=== PATIENT | female | born 1985 | race Caucasian/White ===

== ENCOUNTER 2016-09-26 20:16 | Emergency (ER) | payer MEDICAID ==
[2016-09-26 20:27] VITALS: BP 126/76; PULSE 87; TEMP 98.1; O2SAT 100
--- NOTE | 2016-09-26 21:07 | C.PDOC ---
History Of Present Illness 31 year old patient, with a past medical history of hepatitis C and Crohn's Disease, presents to the ED requesting heroin detox. Patient states she has been using it by IV for many years. She tried detox before and stayed clean for 7 months. Patient has been on the detox wait list for a while now. She admits her last use was around 4 pm today. Patient denies fever, nausea, vomiting, suicidal ideation, homicidal ideation or any other physical complaints. Time Seen by Provider: 09/26/16 20:33 Chief Complaint (Nursing): Psychiatric Evaluation History Per: Patient History/Exam Limitations: no limitations Onset/Duration Of Symptoms: Other Current Symptoms Are (Timing): Still Present Suicide/Self Injury Attempted (Context): None Modifying Factor(s): Other (heroin) Severity: None Pain Scale Rating Of: 0 Associated Symptoms: Other (upset) Recent travel outside of the [place]: No Past Medical History Reviewed: Historical Data, Nursing Documentation, Vital Signs Vital Signs: Last Vital Signs Temp 98.1 F 09/26/16 20:40 Pulse 87 09/26/16 20:40 Resp 20 09/26/16 20:40 BP 126/76 09/26/16 20:40 Pulse Ox 100 09/26/16 21:13 - Medical History PMH: Crohn's Disease Family History: States: Unknown Family Hx - Social History Hx Alcohol Use: Yes Hx Substance Use: Yes - Immunization History Hx Tetanus Toxoid Vaccination: No Hx Influenza Vaccination: No Hx Pneumococcal Vaccination: No Review Of Systems Except As Marked, All Systems Reviewed And Found Negative. Constitutional: Negative for: Fever Gastrointestinal: Negative for: Nausea, Vomiting Psych: Negative for: Suicidal ideation Physical Exam - Physical Exam Appears: Non-toxic, No Acute Distress, Other (upset) Skin: Warm, Dry Head: Atraumatic, Normacephalic Neck: Normal ROM, Supple Chest: Symmetrical Cardiovascular: Rhythm Regular Respiratory: Normal Breath Sounds, No Rales, No Rhonchi, No Wheezing Gastrointestinal/Abdominal: Soft, No Tenderness Back: Normal Inspection, No CVA Tenderness Extremity: Normal ROM Neurological/Psych: Oriented x3 ED Course And Treatment O2 Sat by Pulse Oximetry: 100 (room air) Pulse Ox Interpretation: Normal Progress Note: Patient was seen by Vy from crisis. She is actually nexton the detox list and there may be a bed available in the morning. She is advised to call in the morning for pre-screening. Disposition - Disposition Disposition: HOME/ ROUTINE Disposition Time: 21:28 Condition: STABLE Instructions: Narcotic Abuse (ED) - Clinical Impression Clinical Impression: Narcotic abuse - Scribe Statement The provider has reviewed the documentation as recorded by the Scribe Sallie Garcia Provider Attestation: All medical record entries made by the Scribe were at my direction and personally dictated by me. I have reviewed the chart and agree that the record accurately reflects my personal performance of the history, physical exam, medical decision making, and the department course for this patient. I have also personally directed, reviewed, and agree with the discharge instructions and disposition.
[2016-09-26 21:36] VITALS: RESP 18
== END 2016-09-26 21:30 | disposition home or self-care (01) ==
LOC: C.ER 20:16
DX: F11.10 Opioid abuse, uncomplicated (principal)

== ENCOUNTER 2016-09-27 17:45 | Inpatient (IN) | payer MEDICAID ==
[2016-09-27 18:22] LABS: BASO # 0.1 K/uL (0.0-0.2); BASO % 0.8 % (0.0-2.0); EOS # 0.3 K/uL (0.0-0.7); EOS % 3.3 % (0.0-4.0); HEMATOCRIT 26.1 % (34.0-47.0); LYMPH # 3.7 K/uL (1.0-4.3); LYMPH % 36.7 % (20.0-40.0); MEAN CELL VOLUME 76.5 fL (81.0-99.0); MEAN CORPUSCULAR HEMOGLOBIN 23.8 pg (27.0-31.0); MEAN CORPUSCULAR HGB CONC 31.1 g/dL (33.0-37.0); MEAN PLATELET VOLUME 8.3 fL (7.2-11.7); MONO % 9.9 % (0.0-10.0); RED CELL DISTRIBUTION WIDTH 18.1 % (11.5-14.5); WHITE BLOOD COUNT 10.1 K/uL (4.8-10.8)
[2016-09-27 18:26] LABS: RBC URINE < 1 /hpf (0-3); URINE BILIRUBIN NEGATIVE (NEGATIVE); URINE BLOOD NEGATIVE (NEGATIVE); URINE COLOR Yellow (YELLOW); URINE GLUCOSE (UA) NORMAL (Normal); URINE KETONE NEGATIVE (NEGATIVE); URINE LEUKOCYTE ESTERASE NEG Leu/uL (Negative); URINE PROTEIN 1+ mg/dL (NEGATIVE); URINE UROBILINOGEN NORMAL mg/dL (0.2-1.0); WBC URINE < 1 /hpf (0-5)
[2016-09-27 18:31] LABS: CHLORIDE 101 mmol/L (98-107); SODIUM 135 mmol/L (132-148)
[2016-09-27 18:33] LABS: BILIRUBIN,TOTAL 0.4 mg/dL (0.2-1.3); CARBON DIOXIDE 25 mmol/L (22-30); GFR AFRICAN-AMERICAN > 60
[2016-09-27 18:34] LABS: ALCOHOL SERUM < 10 mg/dl (0-10); ALKALINE PHOSPHATASE 89 U/L (38-126); ALT/SGPT 64 U/L (9-52); AST/SGOT 63 U/L (14-36); BLOOD UREA NITROGEN 18 mg/dL (7-17); GLUCOSE,RANDOM 98 mg/dL (65-105); TOTAL PROTEIN 7.9 g/dL (6.3-8.3)
--- NOTE | 2016-09-27 19:31 | C.PDOC ---
History Of Present Illness 31 y/o female presents to the ED for heroin detox. Pt arrives prescreened. Last used 4 bags heroin last night. No complaints at this time. Hx of Crohn's disease. Time Seen by Provider: 09/27/16 17:59 Chief Complaint (Nursing): Substance Abuse History Per: Patient History/Exam Limitations: no limitations Suicide/Self Injury Attempted (Context): None Modifying Factor(s): Narcotics Associated Symptoms: denies: Suicidal Thoughts Involuntary Hold By: None Recent travel outside of the [place]: No Past Medical History Reviewed: Historical Data, Nursing Documentation, Vital Signs Vital Signs: Last Vital Signs Temp 98.1 F 09/27/16 21:46 Pulse 88 09/27/16 21:46 Resp 18 09/27/16 21:46 BP 108/71 09/27/16 21:46 Pulse Ox 100 09/27/16 21:46 - Medical History PMH: Crohn's Disease, Hepatitis (C) Family History: States: Unknown Family Hx - Social History Hx Alcohol Use: Yes Hx Substance Use: Yes - Immunization History Hx Tetanus Toxoid Vaccination: No Hx Influenza Vaccination: No Hx Pneumococcal Vaccination: No Review Of Systems Except As Marked, All Systems Reviewed And Found Negative. Physical Exam - Physical Exam Appears: Non-toxic, No Acute Distress, Other (obese white female, cooperative) Skin: Warm, Dry Head: Atraumatic, Normacephalic Neck: Normal, Normal ROM, Supple Chest: Symmetrical Cardiovascular: Rhythm Regular, No Murmur Respiratory: Normal Breath Sounds, No Rales, No Rhonchi, No Wheezing Gastrointestinal/Abdominal: Soft, No Tenderness Extremity: Bilateral: Atraumatic Neurological/Psych: Oriented x3, Normal Speech ED Course And Treatment - Laboratory Results Result Diagrams: 09/27/16 18:17 09/27/16 18:17 Lab Interpretation: Abnormal (microcytic anemia, tox + cocaine/opiates.) Urine POC: Negative O2 Sat by Pulse Oximetry: 98 (room air) Pulse Ox Interpretation: Normal Reevaluation Time: 20:29 Reassessment Condition: Unchanged Medical Decision Making Medical Decision Making: chronic iron deficiency anemia- in light of Crohn's Dz, probably GI source, but thorough GI and ECHOCARDIOGRAPHY TECHNOLOGIST eval indicated Continue Iron supplements by mouth 3x/day and stool softners to prevent constipation from the iron supplements. heroine and cocaine abuse- d/w Crisis workers- ok to Detox @ 2030 Disposition Doctor Will See Patient In The: Hospital Counseled Patient/Family Regarding: Studies Performed, Diagnosis - Disposition Disposition: HOSPITALIZED Disposition Time: 20:30 Condition: GOOD - Clinical Impression Clinical Impression: Narcotic abuse, Cocaine abuse, Microcytic anemia - Scribe Statement The provider has reviewed the documentation as recorded by the Reedibpat Esparza Provider Attestation: All medical record entries made by the Gayle were at my direction and personally dictated by me. I have reviewed the chart and agree that the record accurately reflects my personal performance of the history, physical exam, medical decision making, and the department course for this patient. I have also personally directed, reviewed, and agree with the discharge instructions and disposition.
[2016-09-28] MEDS ORDERED: Buprenorphine Hydrochloride 2 mg SL ONE ×2 (06:00→07:21)
[2016-09-28 06:02] VITALS: O2SAT 99
[2016-09-28 10:03] VITALS: BP 124/89; PULSE 91; RESP 18; TEMP 98.3
--- NOTE | 2016-09-28 13:13 | PCM.PSYCH ---
Initial Psychiatric Evaluation - Initial Psychiatric Evaluation Type of Admission: Voluntary Legal Status: Capacity Chief Complaint (in patient's own words): "I don't feel well." History of Present Illness and Precipitating Events: The patient is a 30yo female, single with no children, came to the ED to get help in heroin detox. She says that she lives in [facility] with her boyfriend. The patient states that she is unemployed but her boyfriend takes care of her. She says that she injects 20 bags of heroine a day for the past 14 years. She states that her longest sobriety was 7 months and she relapsed after her miscarriage. She has previously been to detox in [place] 1-1.5 years ago. She denies alcohol use and states she smokes a pack of cigarettes a day for the past 16 years but smokes vapor now. She denies any legal issues and states her plan is to stop using. She denies S/I or H/I. She states she has been experiencing nausea, vomiting, body aches, headache, decreased appetite, and a runny nose. She currently appears to be disheveled and very uncomfortable, tossing and turning throughout this interview. Past psych history: denies Past medical history: Hepatitis C, Crohns disease Family history: Mother and brother committed suicide Current Medications: Active Medications Generic Name Dose Route Start Last Admin Trade Name Freq PRN Reason Stop Dose Admin Nicotine 1 patch 09/28/16 10:45 09/28/16 11:15 Nicoderm Cq TD 1 patch DAILY MANUELA Administration Trazodone HCl 50 mg 09/27/16 22:03 09/27/16 22:19 Desyrel PO 50 mg HS PRN Administration Insomnia Past Psychiatric History - Past Psychiatric History Previous Treatment History: Inpatient Pertinent Medical Hx (Current Medical&Sleep Prob, Allergies): Allergies Allergy/AdvReac Type Severity Reaction Status Date / Time No Known Allergies Allergy Verified 09/27/16 17:49 No Known Home Med 09/26/16 Review of Systems - Review of Systems All systems: reviewed and no additional remarkable complaints except - Psychiatric Psychiatric: Anxiety, Irritability. absent: Homicidal Ideation, Suicidal Ideation Mental Status Examination - Personal Presentation Personal Presentation: Looks stated age - Affect Affect: Constricted - Motor Activity Motor Activity: Psychomotor Agitation - Reliability in Providing Information Reliability in Providing Information: Fair - Speech Speech: Organized - Mood Mood: Depressed, Anxious - Formal Thought Process Formal Thought Process: No Impairment - Obsessions/Compulsions Obsessions: No Compulsions: No - Cognitive Functions Orientation: Person, Place, Situation, Time Sensorium: Alert Attention/Concentration: Attentive Abstract Thinking: [place] Estimate of Intelligence: Below average Judgement: Imparied, as evidence by: Poor judgement, Intact, as evidence by: Insight regarding need for hospitalization - Risk Risk: Withdrawal, Diminished functioning - Strength & Assets Inventory Strength & Assets Inventory: Family support DSM 5 DX - DSM 5 DSM 5 Diagnosis: Opiate use disorder severe Opiate withdrawal Mood disorder - Recommended/Plan of Treatment Treatment Recommendations and Plan of Treatment: Opioid use disorder severe CBT Psychoeducation Supportive therapy, individual therapy Use [place] for abstinence Opioid withdrawal CBT Psychoeducation Supportive therapy, individual therapy Clonidine when necessary Subutax taper Mood disorder CBT Psychoeducation Supportive therapy, individual therapy Neurontin 100 mg by mouth 3 times a day Trazodone 50 mg by mouth daily at bedtime - Smoking Cessation Smoking Cessation Initiated: No
--- NOTE | 2016-09-28 17:03 | PCM.PYCHDC ---
Mental Status Examination - Mental Status Examination Orientation: Person, Place, Situation, Time Memory: Intact Mood: Neutral Affect: Constricted Speech: Soft Attention: WNL Concentration: WNL Association: WNL Fund of Knowledge: WNL Formal Thought Process: No Impairment Description of patient's judgement and insight: partially impaired Psychotic Thoughts and Behaviors: denies any auditory or visual hallucinations Suicidal Ideation: No Current Homicidal Ideation?: No Discharge Summary - Discharge Note Reason for Hospitalization: The patient is a 30yo female, single with no children, came to the ED to get help in heroin detox. She says that she lives in [facility] with her boyfriend. The patient states that she is unemployed but her boyfriend takes care of her. She says that she injects 20 bags of heroine a day for the past 14 years. She states that her longest sobriety was 7 months and she relapsed after her miscarriage. She has previously been to detox in [place] 1-1.5 years ago. She denies alcohol use and states she smokes a pack of cigarettes a day for the past 16 years but smokes vapor now. She denies any legal issues and states her plan is to stop using. She denies S/I or H/I. She states she has been experiencing nausea, vomiting, body aches, headache, decreased appetite, and a runny nose. She currently appears to be disheveled and very uncomfortable, tossing and turning throughout this interview. Past psych history: denies Past medical history: Hepatitis C, Crohns disease Family history: Mother and brother committed suicide Consultations:: List each consultation separately and include: 1. Reason for request. 2. Findings. 3. Follow-up Summary of Hospital Course include:: 1. Description of specific treatment plan utilized for patients during their course of treatmen. 2. Summarize the time- course for resolution of acute symptoms and/or regressed behaviors. 3. Describe issues identified and worked on during hospitalization. 4. Describe medication utilized. 5. Describe medical problems identified and treated. 6. Reassessment of suicide risk Summary of Hospital Course: During the course of her stay, patient (pt) started progressively improving, she was given Subutex taper. However, in 4 hours patient stated she wants to sign out AMA. She mentioned that she came here to get methadone but she was given Subutex and she is going to a methadone program. Patient denied any feelings of hopelessness, helplessness, and worthlessness, denied any problem with the sleep or appetite, denied suicidal ideation or homicidal ideation. Pt denied any auditory or visual hallucinations. - Final Diagnosis (DSM 5) Condition upon Discharge: GOOD DSM 5: Opioid use disorder severe Opioid withdrawal Mood disorder Disposition: AGAINST MEDICAL ADVICE Follow-up Treatment Plan: Education: Pt was educated and counseled about the risks and benefits of taking and not taking medications. Pt was educated and counseled about the risks of drinking and abusing drugs. Pt was educated and counseled to go to the ER or call 911 if pt develop suicidal ideation or homicidal ideation, worsening of symptoms or severe side effects of the meds. - Smoking Cessation Smoking Cessation Medication prescribed: No - Antipsychotic Medications Pt discharged on 2 or more routine antipsychotic medications: No
== END 2016-09-28 14:30 | disposition left against medical advice (07) | DRG 743 ==
LOC: C.ER 17:45 → C.7D 20:32
PROVIDERS: ADMIT Psychiatry & Neurology Psychiatry; ATTEND Psychiatry & Neurology Psychiatry
DX: F11.23 Opioid dependence with withdrawal (principal); K50.90 Crohn's disease, unspecified, without complications; B19.20 Unspecified viral hepatitis C without hepatic coma; F14.10 Cocaine abuse, uncomplicated; D50.9 Iron deficiency anemia, unspecified; F39 Unspecified mood [affective] disorder

== ENCOUNTER 2016-11-04 19:56 | Inpatient (IN) | payer MEDICAID, OTHER ==
[2016-11-04 19:56] VITALS: BMI 26.5
--- NOTE | 2016-11-04 20:57 | C.PDOC ---
History Of Present Illness Patient is a 31 y/o female, with history of heroin abuse, hepatitis C, and crohn 's disease, that presents to the ED for evaluation of suicidal ideation. Patient reports using 20 bags of IV heroin everyday. Pt states that her heroin use is getting out of control, and states that she is having thoughts of killing herself. Otherwise, denies any HI, or any physical complaints at this time. Time Seen by Provider: 11/04/16 20:41 Chief Complaint (Nursing): Psychiatric Evaluation History Per: Patient History/Exam Limitations: no limitations Onset/Duration Of Symptoms: Gradual Current Symptoms Are (Timing): Still Present Suicide/Self Injury Attempted (Context): None Modifying Factor(s): Other (heroin) Severity: None Pain Scale Rating Of: 0 Associated Symptoms: Suicidal Thoughts Involuntary Hold By: None Recent travel outside of the [place]: No Additional History Per: Patient Past Medical History Reviewed: Historical Data, Nursing Documentation, Vital Signs Vital Signs: Last Vital Signs Temp 98.2 F 11/04/16 20:08 Pulse 85 11/04/16 20:08 Resp 18 11/04/16 20:08 BP 112/78 11/04/16 20:08 Pulse Ox 100 11/04/16 20:59 - Medical History PMH: Crohn's Disease, Hepatitis (C) Denies: Diabetes, HIV, HTN, Chronic Kidney Disease, Seizures, Sexually Transmitted Disease Family History: States: Unknown Family Hx - Social History Hx Alcohol Use: Yes Hx Substance Use: Yes - Immunization History Hx Tetanus Toxoid Vaccination: No Hx Influenza Vaccination: No Hx Pneumococcal Vaccination: No Review Of Systems Except As Marked, All Systems Reviewed And Found Negative. Constitutional: Negative for: Fever, Chills Cardiovascular: Negative for: Chest Pain, Palpitations Respiratory: Negative for: Cough, Shortness of Breath Gastrointestinal: Negative for: Nausea, Vomiting, Abdominal Pain Neurological: Negative for: Headache, Dizziness Psych: Positive for: Suicidal ideation Physical Exam - Physical Exam Appears: Non-toxic, No Acute Distress, Other (restless, anxious) Skin: Normal Color, Warm, Dry Head: Atraumatic, Normacephalic Eye(s): bilateral: Normal Inspection, EOMI Neck: Normal ROM, Supple Chest: Symmetrical, No Tenderness Cardiovascular: Rhythm Regular, No Murmur Respiratory: Normal Breath Sounds, No Rales, No Rhonchi, No Wheezing Gastrointestinal/Abdominal: Soft, No Tenderness Extremity: Normal ROM, No Deformity Neurological/Psych: Oriented x3, Normal Speech, Normal Cognition ED Course And Treatment - Laboratory Results Result Diagrams: 11/04/16 21:10 11/04/16 21:10 Lab Interpretation: No Acute Changes (mild anemia) O2 Sat by Pulse Oximetry: 100 (on RA) Pulse Ox Interpretation: Normal Progress Note: Labs ordered and reviewed. Patient medically cleared for psych admission. Disposition - Disposition Disposition: HOSPITALIZED Disposition Time: 23:57 Condition: STABLE - Clinical Impression Clinical Impression: Moderate major depression, single episode - Scribe Statement The provider has reviewed the documentation as recorded by the Scribe Phillip Garcia All medical record entries made by the Reedibpat were at my direction and personally dictated by me. I have reviewed the chart and agree that the record accurately reflects my personal performance of the history, physical exam, medical decision making, and the department course for this patient. I have also personally directed, reviewed, and agree with the discharge instructions and disposition.
[2016-11-04 21:20] LABS: HCG,QUALITATIVE URINE NEGATIVE (NEGATIVE)
[2016-11-04 21:21] LABS: BASO % 0.7 % (0.0-2.0); EOS # 0.3 K/uL (0.0-0.7); EOS % 3.9 % (0.0-4.0); HEMOGLOBIN 8.5 g/dL (11.0-16.0); LYMPH # 2.7 K/uL (1.0-4.3); MEAN CORPUSCULAR HGB CONC 30.3 g/dL (33.0-37.0); MEAN PLATELET VOLUME 9.1 fL (7.2-11.7); MONO # 0.9 K/uL (0.0-0.8); MONO % 11.9 % (0.0-10.0); NEUT # 3.3 K/uL (1.8-7.0); NEUT % 45.5 % (50.0-75.0); RBC 3.7 Mil/uL (3.80-5.20); RED CELL DISTRIBUTION WIDTH 17.7 % (11.5-14.5); WHITE BLOOD COUNT 7.2 K/uL (4.8-10.8)
[2016-11-04 21:26] LABS: SQUAMOUS EPITHIAL 11 /hpf (0-5); URINE BACTERIA RARE (<OCC); URINE BILIRUBIN NEGATIVE (NEGATIVE); URINE BLOOD NEGATIVE (NEGATIVE); URINE CLARITY Hazy (Clear); URINE COLOR Yellow (YELLOW); URINE GLUCOSE (UA) NORMAL (Normal); URINE LEUKOCYTE ESTERASE TRACE Leu/uL (Negative); URINE NITRATE NEGATIVE (NEGATIVE); URINE PROTEIN NEGATIVE (NEGATIVE); URINE UROBILINOGEN NORMAL mg/dL (0.2-1.0)
[2016-11-04 21:30] LABS: ALBUMIN 3.8 g/dL (3.5-5.0)
[2016-11-04 21:32] LABS: GFR AFRICAN-AMERICAN > 60; GFR NON-AFRICAN AMERICAN > 60
[2016-11-04 21:33] LABS: ALB/GLOB RATIO 0.8 (1.0-2.1); ALT/SGPT 25 U/L (9-52); AST/SGOT 31 U/L (14-36); BLOOD UREA NITROGEN 11 mg/dL (7-17); CALCIUM 8.3 mg/dl (8.6-10.4)
[2016-11-04 21:37] LABS: BARBITURATES, UR NEGATIVE (NEGATIVE); BENZODIAZEPINES, UR NEGATIVE (NEGATIVE)
[2016-11-04 21:40] LABS: OPIATES, UR NEGATIVE (NEGATIVE)
[2016-11-04 21:41] LABS: PHENCYCLIDINE, UR NEGATIVE (NEGATIVE)
[2016-11-04] MEDS ORDERED: Lidocaine 2% w Epi 1:100,000 Inj IJ ONE (21:48)
[2016-11-04] MEDS ORDERED: Oxycodone/Acetaminophen 5/325 mg Tab ONE (21:48)
[2016-11-05 01:08] VITALS: O2SAT 99
--- NOTE | 2016-11-05 11:50 | PCM.PSYCH ---
Initial Psychiatric Evaluation - Initial Psychiatric Evaluation Type of Admission: Voluntary Legal Status: Capacity Chief Complaint (in patient's own words): "I need help" History of Present Illness and Precipitating Events: The pt is seen, chart reviewed and case discussed. 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. HPI: She says she is in "pain" and tired of living like that, cries a lot during the interview and reports "lots of anxiety." She admits to having thoughts of killing herself but contracts for safety now and agrees to follow her safety plan. Her depression started "long ago" but got worse in the last 4 months. She also reports panic attacks and excessive worrying. On top of that she had been using heroin 20 bags a day, iv, "for years." She was in detox/rehab once at [facility]. She also used methadone at [facility] in [place]. No psychotic or manic sxs Denies other drugs Past psych hx: No admissions to psych but was at [facility] rehab. One kennedy attempt at age 15, previous dep episodes Family psych hx: Mo is an alcoholic and uncle killed himself and had schizophrenia. Medical hx: Hep C and Chron's Current Medications: Active Medications Generic Name Dose Route Start Last Admin Trade Name Freq PRN Reason Stop Dose Admin Acetaminophen 650 mg 11/05/16 00:37 Tylenol 325mg Tab PO Q6 PRN Fever >100.4 F Bacitracin 1 ea 11/05/16 14:00 Bacitracin TOP TID MANUELA Hydroxyzine HCl 25 mg 11/05/16 00:42 11/05/16 02:21 Atarax PO 25 mg Q6 PRN Administration Agitation Loperamide HCl 2 mg 11/05/16 00:37 Imodium PO Q8 PRN Diarrhea Methadone HCl 10 mg 11/05/16 14:00 Methadone PO 11/05/16 14:01 ONCE ONE Methadone HCl 5 mg 11/06/16 10:00 Methadone PO 11/08/16 10:01 DAILY MANUELA Nicotine 1 patch 11/05/16 11:45 Nicoderm Cq TD DAILY MANUELA Ondansetron HCl 4 mg 11/05/16 00:37 Zofran Tab PO Q8H PRN Nausea/Vomiting Sertraline HCl 25 mg 11/05/16 10:00 11/05/16 09:59 Zoloft PO 25 mg DAILY MANUELA Administration Trazodone HCl 50 mg 11/05/16 22:00 Desyrel PO HS MANUELA Past Psychiatric History - Past Psychiatric History Previous Treatment History: None Pertinent Medical Hx (Current Medical&Sleep Prob, Allergies): Allergies Allergy/AdvReac Type Severity Reaction Status Date / Time No Known Allergies Allergy Verified 11/04/16 20:07 No Known Home Med 09/26/16 Review of Systems - Neurological Neurological: UNREMARKABLE - Psychiatric Psychiatric: Abnormal Sleep Pattern, Anhedonia, Anxiety, Behavioral Changes, Change in Appetite, Depression, Difficulty Concentrating. absent: Hallucinations, Homicidal Ideation, Paranoia, Suicidal Ideation Mental Status Examination - Personal Presentation Personal Presentation: Looks stated age (shaky, unkempt, poor eye contact) - Affect Affect: Constricted - Motor Activity Motor Activity: Other (restless, afudgety) - Reliability in Providing Information Reliability in Providing Information: Good - Speech Speech: Organized - Mood Mood: Depressed, Anxious - Formal Thought Process Formal Thought Process: No Impairment - Cognitive Functions Orientation: Person, Place, Time Sensorium: Alert Attention/Concentration: Attentive Estimate of Intelligence: Average Judgement: Intact, as evidence by: Insight regarding need for hospitalization Memory: Recent intact, as evidence by: Ability to recall events of the day, Remote intact, as evidenced by: Abilit to recall sig. life events - Risk Risk: Withdrawal, Diminished functioning - Strength & Assets Inventory Strength & Assets Inventory: Family support, Employment history, Cooperative DSM 5 DX - DSM 5 DSM 5 Diagnosis: Primary: Major depressive d/o - recurrent, severe without psychotic features Panic d/o [place] Opioid use d/o - severe Opioid withdrawal - Recommended/Plan of Treatment Treatment Recommendations and Plan of Treatment: Depression and anxiety d/o: Start medication treatment with As needed medications Attend groups and activities Individual therapy with CBT Supportive therapy and psychoeducation Teach relaxation skills Follow medical conditions, labs, vitals Refer to after care program Opioids: Methadone detox Gabapentin for augmentation As needed meds and vitamins Attend groups and activities [place] for abstinence and CBT for relapse prevention Support and psychoeducation Consider and encourage MAT Refer to after care 33 min Projected ELOS: 6-7 days Prognosis: Good with treatment Discharge Plan and Discharge Criteria: No wdw sxs and no severe depressive sxs Refer to rehab or IOP - Smoking Cessation Smoking Cessation Initiated: Yes
[2016-11-05] MEDS: Bacitracin 500 Units/gm Oint Foilpak UD TOP SCH ×3 (13:37→18:04)
[2016-11-06] MEDS: Bacitracin 500 Units/gm Oint Foilpak UD TOP SCH ×2 (09:26→18:10)
--- NOTE | 2016-11-06 12:43 | PCM.PYCHPN ---
Psychiatric Progress Note - Psychiatric Progress Note Patient seen today, length of contact: 16 min Patient Chief Complaint: I am withdrawing' Problems Identified/Issues Discussed: Patient seen and evaluated, chart reviewed and discussed with the nurse. Patient reports depressed mood and remained isolated and withdrawn. She reports poor sleep and poor appetite and still complains of abdominal pain. Patient also reports withdrawal symptoms including cramps, nausea, anxiety, and headaches. She is tolerating the withdrawal medications and denies any side effects. Supportive therapy and psychoeducation were given. Medication Change: Yes (methadone taper) Medical Record Reviewed: Yes Mental Status Examination - Cognitive Function Orientation: Person, Place, Time Memory: Intact Attention: WNL Concentration: Poor Association: WNL Fund of Knowledge: Poor - Mood Mood: Depressed, Anxious - Affect Affect: Constricted - Speech Speech: Soft - Formal Thought Process Formal Thought Process: No Impairment - Suicidal Ideation Suicidal Ideation: No - Homicidal Ideation Homicidal Ideation: No Goal/Treatment Plan - Goal/Treatment Plan Need for Continued Stay: Discharge may exacerbated symptoms, Severe functional impairment Progress Toward Problem(s) and Goals/Treatment Plan: Depression and anxiety d/o: Start medication treatment with As needed medications Attend groups and activities Individual therapy with CBT Supportive therapy and psychoeducation Teach relaxation skills Follow medical conditions, labs, vitals Refer to after care program Opioids: Methadone detox Gabapentin for augmentation As needed meds and vitamins Attend groups and activities [place] for abstinence and CBT for relapse prevention Support and psychoeducation Consider and encourage MAT Refer to after care - Smoking Cessation Smoking Cessation Initiated: No
[2016-11-07] MEDS: Bacitracin 500 Units/gm Oint Foilpak UD TOP SCH ×4 (13:39→17:22)
[2016-11-07 14:01] VITALS: RESP 20; TEMP 97.9
[2016-11-07 16:38] VITALS: BP 112/76; PULSE 93
--- NOTE | 2016-11-08 09:00 | PCM.PYCHDC ---
Mental Status Examination - Mental Status Examination Orientation: Person, Place, Situation, Time Memory: Intact Mood: Anxious Affect: Constricted Speech: Appropriate Attention: WNL Concentration: WNL Association: WNL Fund of Knowledge: WNL Formal Thought Process: No Impairment Suicidal Ideation: No Current Homicidal Ideation?: No Discharge Summary - Discharge Note Reason for Hospitalization: Feeling depressed, suicidal, opioid withdrawal Consultations:: List each consultation separately and include: 1. Reason for request. 2. Findings. 3. Follow-up Summary of Hospital Course include:: 1. Description of specific treatment plan utilized for patients during their course of treatmen. 2. Summarize the time- course for resolution of acute symptoms and/or regressed behaviors. 3. Describe issues identified and worked on during hospitalization. 4. Describe medication utilized. 5. Describe medical problems identified and treated. 6. Reassessment of suicide risk Summary of Hospital Course: On admission: The pt is seen, chart reviewed and case discussed. 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 HPI: She says she is in "pain" and tired of living like that, cries a lot during the interview and reports "lots of anxiety." She admits to having thoughts of killing herself but contracts for safety now and agrees to follow her safety plan. Her depression started "long ago" but got worse in the last 4 months. She also reports panic attacks and excessive worrying. On top of that she had been using heroin 20 bags a day, iv, "for years." She was in detox/rehab once at [facility]. She also used methadone at [facility] in [place]. No psychotic or manic sxs Denies other drugs Past psych hx: No admissions to psych but was at [facility] rehab. One kennedy attempt at age 15, previous dep episodes Family psych hx: Mo is an alcoholic and uncle killed himself and had schizophrenia. Medical hx: Hep C and Chron's Hospital course: The pt was admitted and started on treatment with psychotherapy, support, psychoeducation and medications. SD and CBT used. The pt attended groups and activities, as well as milieu therapy. All the risks and benefits of medications are discussed and the patient understood and agreed. The pt improved with the treatments provided. She then put in a 48 hr notice and left within that time frame but with a plan and rx. She was med-seeking and did not like that we did not keep her on steady dose of methadone rather than detox. She was planning on going to a methaodne maintenance program. After care discussed with the patient. She left for [facility] in [place]. - Final Diagnosis (DSM 5) Condition upon Discharge: IMPROVED DSM 5: Primary: Major depressive d/o - recurrent, severe without psychotic features Panic d/o [place] Opioid use d/o - severe Opioid withdrawal Disposition: HOME/ ROUTINE Follow-up Treatment Plan: Continue below medications after discharge. Follow after care plan as discussed: [facility] meth[facility]one program in [place] but also consider suboxone or vivitrol if this does not happen. Use relapse prevention skills Return to ER or call 911 if suicidal, homicidal or symptoms relapse. Stay away from stress, alcohol and drugs. See primary doctor once a year. Prescriptions/Medication Reconciliation: Gabapentin [Neurontin] 300 mg PO TID #90 cap Sertraline [Zoloft] 50 mg PO DAILY #30 tab traZODone [Desyrel] 100 mg PO HS #30 tab
[2016-11-08] MEDS: Bacitracin 500 Units/gm Oint Foilpak UD TOP SCH (10:13)
--- NOTE | 2016-11-08 13:04 | PCM.PYCHPN ---
Psychiatric Progress Note - Psychiatric Progress Note Patient seen today, length of contact: 15 min Patient Chief Complaint: "I want to leave soon" Problems Identified/Issues Discussed: The pt is seen, chart reviewed, case discussed with staff. Support given, CBT and FL used briefly No new symptoms reported, improving slowly and needs more time No SEs from medications, risks discussed. She wants to leave as she wants to start a methaodne program. Will d/c her tomorrow as she needs more observation and stabilization, has one more dose in detox tomorrow. She is not guaranteed that she will start methaodne right away Medication Change: Yes Medical Record Reviewed: Yes Mental Status Examination - Cognitive Function Orientation: Person, Place, Situation, Time Memory: Intact Attention: WNL Concentration: WNL Association: WNL Fund of Knowledge: WNL - Mood Mood: Anxious - Affect Affect: Constricted - Speech Speech: Appropriate - Formal Thought Process Formal Thought Process: No Impairment - Suicidal Ideation Suicidal Ideation: No - Homicidal Ideation Homicidal Ideation: No Goal/Treatment Plan - Goal/Treatment Plan Need for Continued Stay: Discharge may exacerbated symptoms, Severe functional impairment Progress Toward Problem(s) and Goals/Treatment Plan: Continue below medications after discharge. Follow after care plan as discussed: [facility] methadone program in [place] but also consider suboxone or vivitrol if this does not happen. Use relapse prevention skills Return to ER or call 911 if suicidal, homicidal or symptoms relapse. Stay away from stress, alcohol and drugs. See primary doctor once a year. Estimated Date of D/C: 11/08/16 - Smoking Cessation Smoking Cessation Initiated: Yes
== END 2016-11-08 10:40 | disposition home or self-care (01) | DRG 430 ==
LOC: SUPCPDRO 19:56 → C.ER 19:56 → C.5E 23:58
PROVIDERS: ADMIT Psychiatry & Neurology Psychiatry; ATTEND Psychiatry & Neurology Psychiatry
PROC: GZ3ZZZZ Medication Management (ICD-10-PCS; principal; 2016-11-04)
PROC: HZ2ZZZZ Detoxification Services for Substance Abuse Treatment (ICD-10-PCS; 2016-11-04)
PROC: GZHZZZZ Group Psychotherapy (ICD-10-PCS; 2016-11-04)
PROC: GZ56ZZZ Individual Psychotherapy, Supportive (ICD-10-PCS; 2016-11-04)
PROC: HZ46ZZZ Group Counseling for Substance Abuse Treatment, Psychoeducation (ICD-10-PCS; 2016-11-04)
PROC: HZ59ZZZ Individual Psychotherapy for Substance Abuse Treatment, Supportive (ICD-10-PCS; 2016-11-04)
DX: F33.2 Major depressive disorder, recurrent severe without psychotic features (principal); R45.851 Suicidal ideations; F11.23 Opioid dependence with withdrawal; F41.0 Panic disorder [episodic paroxysmal anxiety]; F41.1 Generalized anxiety disorder; K50.90 Crohn's disease, unspecified, without complications; B18.2 Chronic viral hepatitis C